=== PATIENT | female | born 1940 | race American Indian/Alaskan Native ===

== ENCOUNTER 2017-07-21 09:54 | Outpatient (CLI) | payer MEDICARE ==
--- NOTE | 2017-07-21 16:55 | Mammography Report ---
BILATERAL DIGITAL SCREENING MAMMOGRAM with CAD: 07/21/17 09:54:00 CLINICAL: Routine screening. COMPARISON:06/21/16 FINDINGS: The breasts are heterogeneously dense, which may obscure small masses. A left asymmetry on the CC view requires additional imaging.No architectural distortion or suspicious calcifications. Motion blur on the left MLO view. The right breast is negative. IMPRESSION: Left asymmetry requiring further workup. BI-RADS CATEGORY: 0 -- Additional Imaging Evaluation Required RECOMMENDATION: Recall for left repeat MLO, true lateral and spot compression CC views and left breast ultrasound if needed. ACR BI-RADS MAMMOGRAPHIC CODES: 0 = Needs additional imaging evaluation; 1 = Negative; 2 = Benign; 3 = Probably benign; 4 = Suspicious; 5 = Malignant; 6 = Known biopsy-proven malignancy COMMENT: 1. Dense breast tissue, i.e., adenosis, fibrocystic changes, etc., may obscure an underlying neoplasm. 2. Approximately 10% of cancers are not detected with mammography. 3. A negative mammography report should not delay biopsy if a clinically suspicious mass is present. COMMENT: Patient follow-up letters are generated via our [employer] application.
== END 2017-07-21 09:55 | disposition home or self-care (01) ==
LOC: MAMMO 09:54
PROVIDERS: ATTEND Family Medicine
DX: Z12.31 Encounter for screening mammogram for malignant neoplasm of breast (principal)
CPT/HCPCS: 77067

== ENCOUNTER 2017-08-02 09:40 | Outpatient (CLI) | payer MEDICARE ==
--- NOTE | 2017-08-02 15:25 | Mammography Report ---
Diagnostic left mammogram and targeted left breast ultrasound. History: Recall for left asymmetry. The patient's prior mammograms from 2016 and 2014 were reviewed. The asymmetric density seen on our current study with probably present on both previous studies. Today's study consists of spot compression views in both projections and a medial lateral view. The asymmetric density is confirmed in the CC spot compression image in probably is present in the MLO spot compression image and the 90degree view. No additional focal mammographic findings are seen. Sonographic evaluation of the area of interest demonstrates an ovoid shaped sharply circumscribed hypoechoic lesion with no acoustic shadowing or other suspicious features. This measures 1.0 x 0.5 x 1.1 cm and corresponds to the mammographic density. Impression: Benign-appearing lesion in the left breast at the 11:30 position, 8 cm from the nipple. BI-RADS code: 3. Recommendation: A six-month followup targeted left breast ultrasound is recommended.
== END 2017-08-02 09:41 | disposition home or self-care (01) ==
LOC: MAMMO 09:40
PROVIDERS: ATTEND Family Medicine
DX: N64.89 Other specified disorders of breast (principal); R92.8 Other abnormal and inconclusive findings on diagnostic imaging of breast

== ENCOUNTER 2018-01-30 09:45 | Outpatient (CLI) | payer MEDICARE ==
--- NOTE | 2018-01-30 14:25 | Ultrasound Report ---
LEFT BREAST ULTRASOUND: 01/30/18 09:45:00 CLINICAL: Six month followup. COMPARISON: 08/02/17 FINDINGS: Ultrasound of the left breast demonstrated an oval solid hypoechoic mass at 11:30 o'clock 8 cm from the nipple. It measures 1.1 x 1.0 x 0.6 cm compared to 1.1 x 1.0 x 0.5 cm on the last exam. The mass demonstrates mild shadowing. IMPRESSION: A stable solid 1.1 cm left breast mass at 11:30 o'clock 8 cm from the nipple. Although the mass is stable, recommend ultrasound guided needle core biopsy to confirm benignity. The patient was informed of the recommendation for needle biopsy at the time of the exam. BI-RADS 4A--Mildly Suspicious
== END 2018-01-30 09:46 | disposition home or self-care (01) ==
LOC: MAMMO 09:45
PROVIDERS: ATTEND Family Medicine
DX: N63.20 Unspecified lump in the left breast, unspecified quadrant (principal); Z88.0 Allergy status to penicillin; Z88.6 Allergy status to analgesic agent

== ENCOUNTER 2018-02-15 09:35 | Outpatient (CLI) | payer MEDICARE ==
--- NOTE | 2018-02-15 11:15 | Mammography Report ---
LEFT DIGITAL DIAGNOSTIC MAMMOGRAM: 02/15/18 09:35:00 CLINICAL: For clip placement immediately status post ultrasound biopsy. COMPARISON:08/02/17 FINDINGS: A biopsy clip is now identified at 11:30 o'clock far posterior near the pectoral muscle. IMPRESSION: Concordant clip placement status post ultrasound biopsy. BI-RADS CATEGORY: 4A--Mildly Suspicious Pathology pending.
--- NOTE | 2018-02-15 13:59 | Ultrasound Report ---
ULTRASOUND GUIDED NEEDLE CORE BIOPSY LEFT BREAST WITH CLIP PLACEMENT: 02/15/18 CLINICAL: Left breast mass. COMPARISON :01/30/18 FINDINGS: The procedure was explained to the patient and informed consent was obtained. Ultrasound demonstrated the previous described oval hypoechoic mass at 11:30 o'clock 8 cm from the nipple.. I marked the breast with a felt tip marker and a time out was called. The skin was prepped with Betadine and anesthetized with 1% lidocaine. Needle core biopsy was performed through a tiny dermatotomy using ultrasound guidance, 2% lidocaine with epinephrine for deep anesthesia and a 14-gauge Achieve biopsy device. 3 cores were obtained and placed in formalin. A clip was deployed within the mass. The patient tolerated the procedure well and there were no apparent complications. Hemostasis was achieved with minimal pressure and a sterile dressing was applied. A two view mammogram demonstrated satisfactory placement of the clip. She left the department in good condition and was given instructions for wound care and followup. IMPRESSION: Uncomplicated ultrasound guided needle core biopsy with clip placement left breast.
== END 2018-02-15 09:36 | disposition home or self-care (01) ==
LOC: SPVWC 09:35
PROVIDERS: ATTEND Family Medicine
DX: D24.2 Benign neoplasm of left breast (principal); Z88.0 Allergy status to penicillin; Z88.8 Allergy status to other drugs, medicaments and biological substances
CPT/HCPCS: 88305

== ENCOUNTER 2019-02-28 10:06 | Outpatient (CLI) | payer MEDICARE ==
--- NOTE | 2019-02-28 13:29 | Mammography Report ---
BILATERAL DIGITAL SCREENING MAMMOGRAM WITH CAD INDICATION: Routine screening mammography. Status post ultrasound-guided biopsy of a left benign fibr oadenoma 02/15/2018 TECHNIQUE: Digital bilateral 2D mammography was obtained in the craniocaudal and mediolateral obliq ue projections. This examination was interpreted with the benefit of Computer-Aided Detection analysi s. COMPARISON: 07/21/2017 lateral mammogram and 02/15/2018 left mammogram FINDINGS: Breast Density: The breasts are heterogeneously dense, which may obscure small masses. No mass, architectural distortion or suspicious calcifications. A left upper posterior biopsy clip co rrelates with the site of the benign fibroadenoma. However, no mass is identified. IMPRESSION:No mammographic evidence of malignancy. BI-RADS Category 2: Benign. No mammographic evidence of malignancy. Recommend routine screening ma mmography in one year. A "normal" or negative report should not discourage follow up or biopsy of a clinically significant f inding. A written summary of these findings will be mailed to the patient. The patient will be entered into a mammography reporting system which will generate a reminder letter for the patient's next appointmen t at the appropriate interval. The [employer] recommends yearly mammograms starting at age 40 and continuing as l luiz as a woman is in good health. Breast MRI is recommended for women with an approximate 20-25% or greater lifetime risk of breast cancer, including women with a strong family history of breast or ova coy cancer or who have been treated for Hodgkin's disease. Signer Name: Lexa Starr MD Signed: 02/28/2019 1:24 PM Workstation Name: [id number]
== END 2019-02-28 10:07 | disposition home or self-care (01) ==
LOC: SPVWC 10:06
PROVIDERS: ATTEND Family Medicine
DX: Z12.31 Encounter for screening mammogram for malignant neoplasm of breast (principal)
CPT/HCPCS: 77067

== ENCOUNTER 2020-10-21 11:16 | Outpatient (CLI) | payer MEDICARE ==
--- NOTE | 2020-10-21 13:22 | Mammography Report ---
DIGITAL SCREENING MAMMOGRAM WITH CAD, 10/21/2020 CLINICAL INFORMATION / INDICATION: Routine screening mammography. SCREENING MAMMO TECHNIQUE: Digital bilateral 2D mammography was obtained in the craniocaudal and mediolateral obliqu e projections. This examination was interpreted with the benefit of Computer-Aided Detection analysis . COMPARISON: 02/28/19. FINDINGS: Breast Density: There are scattered areas of fibroglandular density. No dominant mass, suspicious calcifications, or architectural distortion in either breast. Postbiopsy changes in the left superior breast posteriorly with an associated biopsy clip have not ch anged. No new abnormality is seen. IMPRESSION: No mammographic evidence of malignancy. Follow up recommendation: Routine yearly BI-RADS Category 2: Benign. A "normal" or negative report should not discourage follow up or biopsy of a clinically significant f inding. A written summary of these findings will be mailed to the patient. The patient will be entered into a mammography reporting system which will generate a reminder letter for the patient's next appointmen t at the appropriate interval. The [employer] recommends yearly mammograms starting at age 40 and continuing as l luiz as a woman is in good health. Breast MRI is recommended for women with an approximate 20-25% or greater lifetime risk of breast cancer, including women with a strong family history of breast or ova coy cancer or who have been treated for Hodgkin's disease. Signer Name: Marcos Levy MD Signed: 10/21/2020 1:07 PM Workstation Name: [email or web address]
== END 2020-10-21 11:17 | disposition home or self-care (01) ==
LOC: SPVWC 11:16
PROVIDERS: ATTEND Family Medicine
DX: Z12.31 Encounter for screening mammogram for malignant neoplasm of breast (principal)
CPT/HCPCS: 77067

== ENCOUNTER 2021-05-14 07:30 | Day surgery (SDC) | payer MEDICARE ==
[2021-05-14] MEDS ORDERED: SODIUM CHLORIDE 0.9% 500 ML 500 ML IV SCH (09:00)
[2021-05-14 09:03] LABS: Basophils % (Auto) 0.6 % (0.0-1.8); Eosinophils % (Auto) 0.8 % (0.0-4.3); Hematocrit 38.6 % (30.3-42.9); Hemoglobin 12.6 gm/dl (10.1-14.3); Lymphocytes # (Auto) 1.4 K/mm3 (1.2-5.4); Lymphocytes % (Auto) 25.4 % (13.4-35.0); Mean Corpuscular HGB Conc 33 % (30-34); Mean Corpuscular Volume 87 fl (79-97); Monocytes # (Auto) 0.5 K/mm3 (0.0-0.8); Monocytes % (Auto) 8.6 % (0.0-7.3); Platelet Count 223 K/mm3 (140-440); Red Blood Count 4.41 M/mm3 (3.65-5.03)
[2021-05-14 09:16] LABS: INR 0.97 (0.87-1.13)
[2021-05-14 09:23] LABS: Blood Urea Nitrogen 15 mg/dL (7-17); Hemolysis Index 67
[2021-05-14 09:50] LABS: BUN/Creatinine Ratio 21
[2021-05-14] MEDS: fentaNYL 100 MCG/2 ML INJ ONE ×2 (10:55→11:01)
[2021-05-14] MEDS: MIDAZOLAM 2 MG/2 ML INJ ONE ×2 (10:56→11:01)
[2021-05-14] MEDS: LIDOCAINE (2%) 20 MG/1 ML VIAL 20 ML MDV INFILTRATI ONE ×2 (10:56→11:17)
[2021-05-14] MEDS: HEPARIN 10,000 UNITS/10 ML VIAL ONE ×2 (10:56→11:18)
[2021-05-14] MEDS: NITROGLYCERIN SYRINGE 3 ML ONE ×2 (10:57→11:18)
[2021-05-14] MEDS: VERAPAMIL 5 MG/2 ML INJ ONE ×2 (10:57→11:18)
[2021-05-14] MEDS: HEPARIN/NS 5000 UNIT/500ML 1,000 ML IR ONE ×2 (10:58→11:18)
[2021-05-14] MEDS ORDERED: traMADol 50 MG TAB PO PRN (11:57)
--- NOTE | 2021-05-14 12:00 | Discharge Summary ---
Short Stay Discharge Plan Activity: advance as tolerated Weight Bearing Status: Full Weight Bearing Diet: low fat, low cholesterol, low salt Wound: keep clean and dry Special Instructions: smoking cessation, no heavy lifting (3 days) Follow up with: TRUNG ROSALES MD [Primary Care Provider] - 7 Days PAULETTE LOVE MD [Staff Physician] - 7 Days
--- NOTE | 2021-05-14 12:05 | Cardiac Catherization Report ---
DATE OF SERVICE: 05/14/2021 CARDIAC CATHETERIZATION REPORT REASON FOR PROCEDURE: The patient is an 80-year-old woman who is referred for cardiac catheterization for abnormal outpatient thallium stress test. PROCEDURES PERFORMED: 1. Left heart catheterization. 2. Selective left and right coronary angiography. 3. Left ventricular angiography. 4. Sedation time start 11:16, end 11:43. DESCRIPTION OF PROCEDURE: The patient was prepped and draped in a sterile fashion after informed consent. The right radial cath site was prepped and draped after negative Ferdinand's test. Right radial artery was entered using Seldinger technique followed by placement of a 6-Spanish hydrophilic sheath. Routine radial cocktail was administered via the sheath. Selective left and right coronary angiography was performed using a #3.5 left Calin and a #4 right Calin. The pigtail catheter was used for left ventricular angiography. The catheters and the sheath were removed, and hemostasis achieved at the radial site using a TR band. The patient was returned to the postprocedure unit in stable condition. There were no complications. FINDINGS; HEMODYNAMICS: Left ventricular end diastolic pressure was 25-30, following coronary angiography. Ascending aortic pressure was 140/80. There was no significant pressure gradient on pullback across the aortic valve. CORONARY ANGIOGRAPHY: The left main coronary artery was angiographically normal. The left anterior descending artery and its diagonal branches were angiographically normal. The circumflex artery and its obtuse marginal branches were angiographically normal. The right coronary artery was dominant, and similarly angiographically normal. There was normal to hyperdynamic left ventricular systolic function. The ejection fraction was estimated at 60%-70%. The left ventricular systolic function may have been overestimated due to ventricular ectopy during contrast injection. CONCLUSION: 1. Angiographically normal coronary arteries. 2. Normal to hyperdynamic left ventricular systolic function, ejection fraction 60%-70%. RECOMMENDATIONS: Risk factor modification and medical therapy. TID: [id number] RECEIPT: [id number] TAE/TERESITA
[2021-05-14] MEDS ORDERED: SODIUM CHLORIDE 0.9% 1000 ML 1,000 ML IV SCH (13:00)
[2021-05-14 15:24] VITALS: BP 146/75
--- NOTE | 2021-05-15 09:30 | Electrocardiograph Report ---
[facility] Test Date: 2021-05-14 Test Time: 09:21:25 Pat Name: HAWK KNAPP Department: Room: Gender: F Distribution Operations Manager: LYUBOV : 1940 Requested By: NICKO ZARATE Order Number: [id number] Reading MD: Nicola Randall Measurements Intervals [place] Rate: 66 P: 22 MI: 179 QRS: 18 QRSD: 92 T: 38 QT: 409 QTc: 427 Interpretive Statements Sinus rhythm nonspecific st-t No previous ECG available for comparison Electronically Signed On 05-15-2021 9:29:58 EDT by Nicola Randall
== END 2021-05-14 15:31 | disposition home or self-care (01) ==
LOC: CATHLABREC 07:30
PROVIDERS: ATTEND Internal Medicine Cardiovascular Disease
DX: R94.39 Abnormal result of other cardiovascular function study (principal); I10 Essential (primary) hypertension; E78.5 Hyperlipidemia, unspecified; Z79.899 Other long term (current) drug therapy; Z88.0 Allergy status to penicillin; Z88.8 Allergy status to other drugs, medicaments and biological substances; Z98.890 Other specified postprocedural states
CPT/HCPCS: 36415; 80048; 85025; 85610; 85730; 93005; 93458; 99156; 99157; C1769; C1894; J1644; J2250; J3010; J7040; Q9967

== ENCOUNTER 2021-10-27 10:33 | Outpatient (CLI) | payer MEDICARE ==
--- NOTE | 2021-10-28 16:49 | Mammography Report ---
DIGITAL SCREENING MAMMOGRAM WITH CAD, 10/27/2021 CLINICAL INFORMATION / INDICATION: Routine screening mammography. SCREENING MAMMO Z12.31 TECHNIQUE: Digital bilateral 2D mammography was obtained in the craniocaudal and mediolateral obliqu e projections. This examination was interpreted with the benefit of Computer-Aided Detection analysis . COMPARISON: 10/21/2020. FINDINGS: Breast Density: There are scattered areas of fibroglandular density. No dominant mass, suspicious calcifications, or architectural distortion in either breast. Postbiopsy change left breast. IMPRESSION: No mammographic evidence of malignancy. Follow up recommendation: Routine yearly BI-RADS Category 2: BENIGN. A "normal" or negative report should not discourage follow up or biopsy of a clinically significant f inding. A written summary of these findings will be mailed to the patient. The patient will be entered into a mammography reporting system which will generate a reminder letter for the patient's next appointmen t at the appropriate interval. The [employer] recommends yearly mammograms starting at age 40 and continuing as l luiz as a woman is in good health. Breast MRI is recommended for women with an approximate 20-25% or greater lifetime risk of breast cancer, including women with a strong family history of breast or ova coy cancer or who have been treated for Hodgkin's disease. Signer Name: Zeferino Sánchez MD Signed: 10/28/2021 4:44 PM Workstation Name: [id number]
== END 2021-10-27 10:34 | disposition home or self-care (01) ==
LOC: SPVWC 10:33
PROVIDERS: ATTEND Family Medicine
DX: Z12.31 Encounter for screening mammogram for malignant neoplasm of breast (principal)
CPT/HCPCS: 77067